=== PATIENT | female | born 1975 | race Caucasian/White ===

== ENCOUNTER 2019-04-24 01:34 | Emergency (ER) | payer SELFPAY | END 2019-04-24 02:06 | LOC: NAV ERS 01:34 | DX: Z04.1 Encounter for examination and observation following transport accident (principal); F31.9 Bipolar disorder, unspecified; F90.9 Attention-deficit hyperactivity disorder, unspecified type; F17.210 Nicotine dependence, cigarettes, uncomplicated; Z79.899 Other long term (current) drug therapy; V89.2XXA Person injured in unspecified motor-vehicle accident, traffic, initial encounter | CPT/HCPCS: 99283 ==